=== PATIENT | male | born 1960 | race Caucasian/White ===

== ENCOUNTER 2018-11-09 16:34 | Emergency (ER) | payer MEDICAID ==
--- NOTE | 2018-11-09 17:33 | ER Document Report ---
ED Medical Screen (RME) - General Chief Complaint: Chest Pain Stated Complaint: CHEST PAIN/SHORTNESS OF BREATH Time Seen by Provider: 11/09/18 17:27 Primary Care Provider: GRECIA APARICIO DPM [Primary Care Provider] - Follow up as needed Mode of Arrival: Wheelchair Information source: Patient Notes: 58-year-old male presented to ED for shortness of breath chest tightness and neck tightness for the last 2 nights. He states he has a history of stasis ulcers blood clots to the legs, back messed up, COPD, states he would just started on Bactrim a couple days ago he stopped the antibiotic because it was making him so short of breath and chest feeling tight. He states he also has a history of multiple vascular surgery for the legs and inguinal hernia repair. He states he continues to smoke 4 to 5 cigars a day does not drink or do any drugs and lives alone. I have greeted and performed a rapid initial assessment of this patient. A comprehensive ED assessment and evaluation of the patient, analysis of test results and completion of medical decision making process will be conducted by an additional ED providers. TRAVEL OUTSIDE OF THE [place] IN LAST 30 DAYS: No - Related Data Allergies/Adverse Reactions: No Known Allergies Allergy (Verified 11/09/18 16:36) Past Medical History - Social History Cigarette use (# per day): Yes - 4 to 5 cigars a day Frequency of alcohol use: None Drug Abuse: None Lives with: Alone - Past Medical History Cardiac Medical History: Reports: None Pulmonary Medical History: Reports: Hx Asthma, Hx Bronchitis, Hx COPD, Hx Pneumonia EENT Medical History: Reports: None Endocrine Medical History: Reports: None Renal/ Medical History: Reports: None Malignancy Medical History: Reports None GI Medical History: Reports: None Musculoskeltal Medical History: Reports None Skin Medical History: Reports None Psychiatric Medical History: Reports: None Traumatic Medical History: Reports: None Infectious Medical History: Reports: None Past Surgical History: Reports: Hx Inguinal Hernia, Hx Vascular Surgery, Other - Cardiac ablation Physical Exam - Vital signs Vitals: Pulse Resp BP Pulse Ox 61 20 131/65 H 95 11/09/18 16:49 11/09/18 16:49 11/09/18 16:49 11/09/18 16:49 Course - Vital Signs Vital signs: Temp Pulse Resp BP Pulse Ox 61 20 131/65 H 95 11/09/18 16:49 11/09/18 16:49 11/09/18 16:49 11/09/18 16:49 Doctor's Discharge - Discharge Referrals: GRECIA APARICIO DPM [Primary Care Provider] - Follow up as needed
--- NOTE | 2018-11-09 18:23 | RADIOLOGY REPORT (SQ) ---
EXAM DESCRIPTION: CHEST 2 VIEWS COMPLETED DATE/TIME: 11/09/2018 5:57 pm REASON FOR STUDY: chest pain COMPARISON: None. EXAM PARAMETERS: NUMBER OF VIEWS: two views TECHNIQUE: Digital Frontal and Lateral radiographic views of the chest acquired. RADIATION DOSE: NA LIMITATIONS: none FINDINGS: LUNGS AND PLEURA: No opacities, masses or pneumothorax. No pleural effusion. MEDIASTINUM AND HILAR STRUCTURES: No masses or contour abnormalities. HEART AND VASCULAR STRUCTURES: Heart normal size. No evidence for failure. BONES: No acute findings. HARDWARE: None in the chest. OTHER: No other significant finding. IMPRESSION: NO ACUTE RADIOGRAPHIC FINDING IN THE CHEST. TECHNICAL DOCUMENTATION: JOB ID: [id number] [employer]- All Rights Reserved Reading location - IP/workstation name: [email or web address]
[2018-11-09 20:11] LABS: ABSOLUTE BASOPHILS # (AUTO) 0.1 10^3/uL (0.0-0.2); ABSOLUTE EOSINOPHILS # (AUTO) 0.1 10^3/uL (0.0-0.6); ABSOLUTE LYMPHOCYTES (AUTO) 2.2 10^3/uL (0.5-4.7); ABSOLUTE MONOCYTES (AUTO) 0.6 10^3/uL (0.1-1.4); ABSOLUTE NEUT (AUTO) 5.1 10^3/uL (1.7-8.2); BASOPHILS % (AUTO) 0.7 % (0-2); EOSINOPHILS % (AUTO) 0.8 % (0-6); HEMATOCRIT 40.3 % (37.9-51.0); HEMOGLOBIN 14.1 g/dL (13.5-17.0); LYMPHOCYTES % (AUTO) 26.9 % (13-45); MEAN CORPUSCULAR HEMOGLOBIN 31.5 pg (27.0-33.4); MEAN CORPUSCULAR HGB CONC 34.9 g/dL (32.0-36.0); MEAN CORPUSCULAR VOLUME 90 fl (80-97); MONOCYTES % (AUTO) 7.9 % (3-13); PLATELET COUNT 219 10^3/uL (150-450); RED BLOOD COUNT 4.46 10^6/uL (4.35-5.55); RED CELL DISTRIBUTION WIDTH 13.3 % (11.5-14.0); SEGMENTED NEUTROPHILS % (AUTO) 63.7 % (42-78); TOTAL CELLS COUNTED % (AUTO) 100 %
[2018-11-09 20:27] LABS: ALBUMIN 4.5 g/dL (3.5-5.0); ALKALINE PHOSPHATASE 103 U/L (38-126); ANION GAP 10 (5-19); ASPARTATE AMINO TRANSFERASE 28 U/L (17-59); BILIRUBIN,DIRECT 0.1 mg/dL (0.0-0.4); BILIRUBIN,TOTAL 1.1 mg/dL (0.2-1.3); BLOOD UREA NITROGEN 15 mg/dL (7-20); CALCIUM 9.9 mg/dL (8.4-10.2); CARBON DIOXIDE 27 mmol/L (22-30); CHLORIDE 104 mmol/L (98-107); CREATINE KINASE 37 U/L (55-170); GLUCOSE 100 mg/dL (75-110); POTASSIUM 4.3 mmol/L (3.6-5.0); TOTAL PROTEIN 7.6 g/dL (6.3-8.2)
[2018-11-09 20:54] LABS: CREATINE KINASE MB < 0.22 ng/mL (<4.55); TROPONIN I < 0.012 ng/mL
--- NOTE | 2018-11-09 21:27 | ER Document Report ---
ED General - General Chief Complaint: Chest Pain Stated Complaint: CHEST PAIN/SHORTNESS OF BREATH Time Seen by Provider: 11/09/18 17:27 Primary Care Provider: GRECIA APARICIO DPM [ACTIVE STAFF] - Follow up as needed Mode of Arrival: Wheelchair TRAVEL OUTSIDE OF THE [place] IN LAST 30 DAYS: No - HPI Notes: Patient is a 58-year-old male with multiple medical issues who presents emergency department for evaluation of tightness in his chest, into his neck, wi th associated shortness of breath. He states this started 2 days ago. He was started on Bactrim a few days ago. He has taken this antibiotic in the past. This is a for stasis ulcers and to urrutia off infection and chronic ulcerations in his feet. He states that he developed chest pain and tightness after that. He read "side effects" on the back of the antibiotic package, believe that the symptoms are all secondary to the Bactrim, so he stopped it. He continues to feel this chest tightness, but states that overall is improved. He denies any wheezing. No swelling or hives. He does have a history of blood clots in his legs. He was on blood thinners in the past but now only takes aspirin. He does have a Mobile filter in place, but was told by his doctor that it is "clogged." - Related Data Allergies/Adverse Reactions: No Known Allergies Allergy (Verified 11/09/18 16:36) Past Medical History - General Information source: Patient - Social History Smoking Status: Current Every Day Smoker Cigarette use (# per day): Yes - 4 to 5 cigars a day Chew tobacco use (# tins/day): No Frequency of alcohol use: None Drug Abuse: None Lives with: Alone Family History: Reviewed & Not Pertinent Patient has suicidal ideation: No Patient has homicidal ideation: No - Past Medical History Cardiac Medical History: Reports: None, Hx DVT, Hx Hypertension Pulmonary Medical History: Reports: Hx Asthma, Hx Bronchitis, Hx COPD, Hx Pneumonia EENT Medical History: Reports: None Neurological Medical History: Reports: Other - TIA Musculoskeletal Medical History: Reports Hx Arthritis Skin Medical History: Reports None Psychiatric Medical History: Reports: None Traumatic Medical History: Reports: None Infectious Medical History: Reports: None Past Surgical History: Reports: Hx Inguinal Hernia, Hx Vascular Surgery, Other - Cardiac ablation Review of Systems - Review of Systems Constitutional: No symptoms reported EENT: No symptoms reported Cardiovascular: See HPI Respiratory: No symptoms reported Gastrointestinal: No symptoms reported Genitourinary: No symptoms reported Musculoskeletal: No symptoms reported Skin: No symptoms reported Neurological/Psychological: No symptoms reported Physical Exam - Vital signs Vitals: Pulse Resp BP Pulse Ox 61 20 131/65 H 95 11/09/18 16:49 11/09/18 16:49 11/09/18 16:49 11/09/18 16:49 - Notes Notes: Is a 58-year-old male who appears older than his stated age, in no acute distress. Vital signs reviewed, please refer to chart. Head is normocephalic, atraumatic. Pupils equal round, reactive to light. Neck is supple without meningismus. Heart is regular rate and rhythm. Lungs are clear to auscultation bilaterally. Abdomen is soft, nontender, normoactive bowel sounds throughout. Extremities without cyanosis, clubbing. Posterior calves are nontender. Peripheral pulses are equal but diminished. Compression stockings in place, maxine an and dry, not taken down. Skin is warm and dry. Patient is awake, alert, neurological exam is nonfocal. Course - Re-evaluation Re-evalutation: 11/09/18 21:25 Patient presents emergency department for evaluation of chest tightness and trouble breathing. Is been going on for a few days. Given the duration, one negative troponin certainly would rule out ACS. He does, however, have a history of DVT and is not currently anticoagulated. His d-dimer is positive, but my suspicion is that this is secondary to his vascular insufficiency and known ulcers. At any rate, I am inclined to perform a CT angiogram of the chest. Findings were explained to the patient, Dannielle pending at this time. We will continue to monitor. 11/09/18 22:56 CT angiogram failed to reveal any signs of pulmonary emboli. There were some findings that were noted, these were related to the patient, as well as the need for follow-up. In regards this patient's chest tightness and difficulty breathing, he believes it was secondary to the Bactrim. He is stopped taking this. I will get and start him on clindamycin for his chronic insufficiency [facility] ers. He is to follow-up with primary care this week, return to the ED with worsening or new concerning symptoms of any sort. - Vital Signs Vital signs: Temp Pulse Resp BP Pulse Ox 61 11 L 128/77 H 100 11/09/18 16:49 11/09/18 23:31 11/09/18 23:40 11/09/18 23:00 - Laboratory Result Diagrams: 11/09/18 19:52 11/09/18 19:52 Laboratory results interpreted by me: 11/09/18 11/09/18 19:52 19:52 D-Dimer 3.24 H Creatine Kinase 37 L - Diagnostic Test Radiology reviewed: Reports reviewed Radiology results interpreted by me: 11/09/18 21:25 Chest X-Ray 11/09/18 17:33 IMPRESSION: NO ACUTE RADIOGRAPHIC FINDING IN THE CHEST. - EKG Interpretation by Me Additional EKG results interpreted by me: 11/09/18 21:26 Sinus bradycardia with a rate of 59 bpm. Normal axis and intervals. Nonspecific ST changes, but no acute changes concerning for ischemia or infarction. No old studies available for comparison. Discharge - Discharge Clinical Impression: Dyspnea Qualifiers: Dyspnea type: unspecified Qualified Code(s): R06.00 - Dyspnea, unspecified Chest pain Qualifiers: Chest pain type: unspecified Qualified Code(s): R07.9 - Chest pain, unspecified Condition: Stable Disposition: HOME, SELF-CARE Instructions: Chest Pain of Unclear Cause ([facility]) Additional Instructions: No clear cause was found for your chest pain today. Your CT scan failed to reveal any signs of blood clots in your lungs. There were small lymph nodes on your CT, these may require follow-up with CT scan. Please see your primary care doctor in regards to this. There is also some thickening of part of your stomach while an early small intestine. You should also discuss the possibility of referral on to gastroenterology for further evaluation of this finding as well. Otherwise, take the clindamycin as directed until gone. Follow-up with your primary care physician this week. Return to the ED with worsening or new concerning symptoms of any sort. Prescriptions: Clindamycin HCl [Cleocin 300 mg Capsule] 300 mg PO BID #14 capsule Referrals: GRECIA APARICIO DPM [ACTIVE STAFF] - Follow up as needed
--- NOTE | 2018-11-09 22:25 | RADIOLOGY REPORT (SQ) ---
EXAM DESCRIPTION: CT angiogram of the chest CLINICAL HISTORY: 58 years, Male, chest pain, h/o PE COMPARISON: Chest x-ray from today. TECHNIQUE: Axial images through the chest were performed after the administration of intravenous contrast using a pulmonary embolus protocol. MIPS were performed. This exam was performed according to our departmental dose-optimization program which includes use of Automated Exposure Control, adjustment of the mA and/or kV according to patient size and/or use of iterative reconstruction technique. 100 mL Omnipaque 350. FINDINGS: A large, 34 mm main pulmonary artery. No evidence for pulmonary embolus. Aorta is unremarkable. Mild cardiomegaly. Multiple small mediastinal lymph nodes. No evidence for pericardial effusion. No suspicious lung or pleural abnormalities. Minimal thickening in the lingula. Limited images of the upper abdomen suggest thickening in the region of the distal gastric antrum, duodenal bulb. IMPRESSION: 1. No evidence for pulmonary embolus. Enlarged main pulmonary artery suggestive of pulmonary hypertension. 2. Multiple small mediastinal lymph nodes. By size criteria benign. Suggest clinical correlation if follow-up is necessary. There are also tiny right axillary lymph nodes. 3. Mild cardiomegaly. 4. Suspected thickening of the distal gastric antrum/proximal duodenal bulb. Consider further evaluation.
[2018-11-09] MEDS ORDERED: CLINDAMYCIN HCL 150 MG CAPSULE PO ONE (22:54)
[2018-11-09 23:39] VITALS: BP 128/77
--- NOTE | 2018-11-10 08:45 | EKG REPORT ---
SEVERITY:- BORDERLINE ECG - SINUS RHYTHM BORDERLINE T ABNORMALITIES, INFERIOR LEADS : Confirmed by: Livia Cedeño MD 10-Nov-2018 08:44:32
== END 2018-11-09 23:41 | disposition home or self-care (01) ==
LOC: ER 16:34
DX: R06.00 Dyspnea, unspecified (principal); R07.9 Chest pain, unspecified; R06.02 Shortness of breath; F17.210 Nicotine dependence, cigarettes, uncomplicated; I10 Essential (primary) hypertension; Z86.718 Personal history of other venous thrombosis and embolism
CPT/HCPCS: 93005; 99285; 36415; 82553; 82550; 83690; 85025; 80053; 84484; 85379; 71046; 71275; 93010; J3490